=== PATIENT | female | born 1955 | race Caucasian/White ===

== ENCOUNTER → 2019-06-07 12:08 | Outpatient (CLI) | payer MEDICARE, SELFPAY ==
--- NOTE | 2019-06-07 | DI.CT.S_ITS ---
PROCEDURE: CT ABDOMEN PELVIS W CON INDICATIONS: Left lower quadrant pain TECHNIQUE: After the administration of oral and intravenous contrast, 5 mm thick sections acquired from the diaphragms to the symphysis. 5 mm thick coronal and sagittal reformats were performed. For radiation dose reduction, the following was used: automated exposure control, adjustment of mA and/or kV according to patient size. COMPARISON: None. FINDINGS: Image quality: Excellent. ABDOMEN: Lung bases: No acute consolidation. 3 mm nodule in the left lung base on image 2/3. Heart size is normal. Solid organs: Liver is normal in size and enhancement. Gallbladder surgically absent. Biliary system is non-dilated. Diffuse pancreatic atrophy. Spleen is normal in size and enhancement. 2.9 x 2.1 cm left adrenal nodule with indeterminate attenuation. Recommend further evaluation with dedicated MRI Kidneys are normal in size and enhancement, without hydronephrosis. However, there is decreased cortical enhancement involving the right posterior cortex image 31/2. No definite adjacent perinephric stranding Peritoneum and bowel: Stomach, small bowel, and colon loops are normal in caliber and wall thickness. No free fluid or air. Nodes and vessels: No retroperitoneal or mesenteric adenopathy. Aorta and inferior vena cava are normal in caliber. Miscellaneous: No ventral hernias. PELVIS: Genitourinary: Bladder wall thickness is normal. Miscellaneous: No inguinal hernias or adenopathy. Bones: No suspicious bony lesions. Age-indeterminate L3 compression fracture IMPRESSION: Right posterior decreased renal cortical enhancement raises the possibility of right pyelonephritis however technically indeterminate and this could represent chronic scar versus ill-defined cystic change. Please correlate clinically and with urinalysis data. Nonspecific large left adrenal nodule. Recommend further evaluation with dedicated adrenal protocol MRI since metastatic or malignant lesions cannot be excluded. Nonspecific left lung base 3 mm pulmonary nodule for which followup chest CT in one year is recommended to exclude early metastatic/malignant etiology. Age-indeterminate L3 compression fracture Elsewhere, no acute process Dictated by: Jimenez Shepard M.D. on 06/07/2019 at 14:05 Approved by: Jimenez Shepard M.D. on 06/07/2019 at 14:13
== END ==
PROVIDERS: Family Provider Physician Assistant; PCP Physician Assistant; Visit Provider Student in an Organized Health Care Education/Training Program
DX: R10.32 Left lower quadrant pain (principal); R91.1 Solitary pulmonary nodule; E27.9 Disorder of adrenal gland, unspecified; M48.56XS Collapsed vertebra, not elsewhere classified, lumbar region, sequela of fracture
CPT/HCPCS: 74177; Q9967

== ENCOUNTER → 2019-06-12 19:00 | Outpatient (CLI) | payer MEDICARE, SELFPAY ==
--- NOTE | 2019-06-12 19:02 | DI.MRI.S_ITS ---
PROCEDURE: MR ABDOMEN WO CON INDICATIONS: ACUTE PYELONEPHRITIS TECHNIQUE: Axial 2-D FLASH in- and [id number], axial breath-hold T2 FSE, axial STIR FSE. Optional contrast may be given, followed by axial 2-D FLASH with fat saturation acquired over the lesion of concern. COMPARISON: None. FINDINGS: Image quality: Excellent. Region of interest: Kidneys, potential cause of or complication from acute pyelonephritis. No hydronephrosis or nephrolithiasis is found. No urinary tract obstruction is suspected. The ureters appear normal. No infiltration in the perinephric soft tissues is found. Additionally, there is no suspicion for renal parenchymal abscess or active inflammation at this time. Bones: Nearby osseous structures demonstrate normal overall marrow signal. IMPRESSION: No source of pyelonephritis is found. At this time there is no suspicion for urinary tract obstruction. No retroperitoneal edema or abscess formation is found. Dictated by: Brandan Roper M.D. on 06/12/2019 at 20:47 Approved by: Brandan Roper M.D. on 06/12/2019 at 20:48
== END ==
PROVIDERS: Family Provider Physician Assistant; PCP Physician Assistant; Visit Provider Student in an Organized Health Care Education/Training Program
DX: N10 Acute pyelonephritis (principal)
CPT/HCPCS: 74181

== ENCOUNTER → 2020-06-23 09:50 | Outpatient (CLI) | payer MEDICARE, SELFPAY ==
--- NOTE | 2020-06-23 | DI.CT.S_ITS ---
PROCEDURE: CT CHEST WO CON INDICATIONS: PULMONARY NODULE TECHNIQUE: Noncontrast 2.0-2.5 mm thick sections acquired from the pulmonary apices to the posterior costophrenic angles. 7 mm thick axial MIP and 5 mm coronal and sagittal reformats were then acquired. A low radiation dose technique was utilized. COMPARISON: [facility], CT, CT ABDOMEN PELVIS W CON, 06/07/2019, 13:21. FINDINGS: Image quality: Diagnostic, given the low radiation dose technique. Lungs and pleura: 4 mm nodule represents the partially visualized left lung base solitary solid-appearing nodule. This structure was initially seen by CT scanning 06/07/19. Mediastinum: Heart size is normal. No pericardial effusion. No mediastinal adenopathy by size criteria. Thoracic aorta and central pulmonary arteries are normal in size. Esophagus is normal in caliber. No hiatal hernia. Bones and chest wall: No suspicious bony lesions. No vertebral body compression fractures. No axillary or supraclavicular adenopathy by size criteria. Thyroid gland is not well seen by this noncontrast technique. Abdomen: Visualized upper abdomen solid organs and bowel loops appear normal in the absence of contrast. IMPRESSION: Improve visualization of the previously partially visualized 4 mm left lower lung radiodensity, seen initially in May of 2019. Given stability of appearance over time no follow-up is recommended. Fleischner Society criteria for SOLID lung nodule followup. Nodule size (mm)Low-risk patientHigh-risk patient<6 (single or multiple)No routine followup.Optional CT at 12 months. 6-8 (single or multiple)CT at 6-12 months, then optional CT at 18-24 mo.CT at 6-12 months, then CT at 18-24 months. >8 (single)CT at 3 months, PET-CT, or biopsy. Same as for low-risk pts. >8 (multiple)CT at 3-6 months, then optional CT at 18-24 mo.CT at 3-6 months, then CT at 18-24 months. Recommendations do not apply to lung cancer screening, patients with immunosuppression, or patients with known primary cancer. Dictated by: Brandan Roper M.D. on 06/23/2020 at 15:23 Approved by: Brandan Roper M.D. on 06/23/2020 at 15:29
== END ==
PROVIDERS: Family Provider Physician Assistant; PCP Student in an Organized Health Care Education/Training Program; Referring Provider Student in an Organized Health Care Education/Training Program; Visit Provider Student in an Organized Health Care Education/Training Program
DX: R91.1 Solitary pulmonary nodule (principal)
CPT/HCPCS: 71250

== ENCOUNTER → 2020-10-27 09:51 | Outpatient (CLI) | payer MEDICARE, SELFPAY | PROVIDERS: Family Provider Physician Assistant; PCP Student in an Organized Health Care Education/Training Program; Referring Provider Student in an Organized Health Care Education/Training Program; Visit Provider Student in an Organized Health Care Education/Training Program | DX: M85.88 Other specified disorders of bone density and structure, other site (principal); Z78.0 Asymptomatic menopausal state; E07.9 Disorder of thyroid, unspecified; Z82.62 Family history of osteoporosis | CPT/HCPCS: 77080 ==